=== PATIENT | male | born 1985 | race Caucasian/White ===

== ENCOUNTER 2017-10-14 18:18 | Emergency (ER) | payer OTHER ==
[~2017-10-14] VITALS: Ht 172.7 cm; Wt 63.5 kg
[~2017-10-14 18:18] MED LIST: ADDERALL; CLONIDINE0.1 PO; KLONOPIN0.5 MG; METHADONE HCL40 MG; PROZAC; REMERON15 MG PO; RESTORIL30 MG
[2017-10-14] MEDS ORDERED: ADDERALL 30 MG30 MG (19:08)
[2017-10-14] MEDS ORDERED: IMITREX100 MG (19:09)
[2017-10-14 19:38] LABS: ABSOLUTE BASOPHILS 0.1 thou/uL (0.0-0.2); ABSOLUTE EOSINOPHILS 0.1 thou/uL (0.0-0.7); ABSOLUTE LYMPHOCYTES 1.8 thou/uL (0.8-5.3); ABSOLUTE MONOCYTES 0.8 thou/uL (0.0-1.2); ABSOLUTE NEUTROPHILS 4.3 thou/uL (1.6-8.1); BASOPHILS 0.8 %; EOSINOPHILS 1.7 %; HEMATOCRIT 40.9 % (42.0-52.0); HEMOGLOBIN 13.4 gm/dL (14.0-18.0); LYMPHOCYTES 25.7 %; MCH 30.8 pg (26.0-34.0); MCHC 32.9 g/dL (28.0-37.0); MCV 93.7 fL (80.0-100.0); MONOCYTES 10.8 %; MPV 7.8 fl. (7.2-11.1); NUCLEATED RBCS 0 /100WBC; PLATELET COUNT* 263 thou/uL (150-400); RBC 4.36 mil/uL (4.50-6.00); RDW-CV 12.8 % (10.5-14.5); WBC 7.1 thou/uL (4.0-11.0)
[2017-10-14 19:48] LABS: CALCIUM 9.2 mg/dL (8.5-10.1); CREATININE 1.2 mg/dL (0.6-1.3); POTASSIUM 3.8 mmol/L (3.5-5.1)
[2017-10-14 19:53] LABS: ALBUMIN 4.6 g/dL (3.4-5.0); ALCOHOL < 10 mg/dL (<10); TOTAL BILIRUBIN 1.3 mg/dL (<0.1-1.0); TOTAL PROTEIN 8.1 g/dL (6.4-8.2)
[2017-10-14 20:05] LABS: ACETAMINOPHEN < 2 ug/mL (10-30); SALICYLATE < 2.8 mg/dL (2.8-20.0)
[2017-10-14 20:28] LABS: URINE BLOOD NEGATIVE (Negative); URINE CLARITY CLEAR; URINE COLOR YELLOW; URINE GLUCOSE-RANDOM NEGATIVE (Negative); URINE KETONES 1+ (Negative); URINE LEUKOCYTES-REFLEX NEGATIVE (Negative); URINE NITRITE-REFLEX NEGATIVE (Negative); URINE PROTEIN 1+ (Negative); URINE SPECIFIC GRAVITY >= 1.030 (1.005-1.030)
[2017-10-14 20:33] LABS: URINE BILIRUBIN 1+ (Negative)
[2017-10-14 20:34] LABS: ICTOTEST (BILI CONFIRMATORY) Negative (Negative)
[2017-10-14 20:35] LABS: SQUAMOUS 0-3 Few /LPF (0-3); URINE RBC 0-2 Rare /HPF (0-2); URINE WBC-REFLEX None Seen /HPF (0-5)
[2017-10-14 20:36] LABS: BACTERIA-REFLEX 1-9 Few /HPF (None Seen); CASTS None Seen /LPF (None Seen); CRYSTALS None Seen /LPF (None Seen)
[2017-10-14 20:37] LABS: AMP/METHAMP POSITIVE (Negative); BARBITURATES Negative (Negative); BENZODIAZEPINES POSITIVE (Negative); COCAINE Negative (Negative); METHADONE Negative (Negative); OPIATES Negative (Negative); PCP Negative (Negative); THC Negative (Negative)
[2017-10-14 23:13] VITALS: BP 117/76
--- NOTE | 2017-10-15 16:24 | EKG ---
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1985 Requested By: Scarlett Mckeon Order Number: [id number] MD: Kael Moralez Measurements Intervals [place] Rate: 124 P: 86 CO: 112 QRS: 89 QRSD: 89 T: 62 QT: 318 QTc: 457 Interpretive Statements Sinus tachycardia LAE, consider biatrial enlargement RSR' in V1 or V2, probably normal variant Borderline T abnormalities, anterior leads Compared to ECG 01/29/2012 21:08:54 RSR' in V1 or V2 now present T-wave abnormality now present Sinus rate has increased Incomplete right bundle-branch block no longer present Electronically Signed On 10-15-2017 16:23:58 CDT by Kael Moralez [email or web address] <ELECTRONICALLY SIGNED> By: Kael Moralez MD, FAC 10/15/17 1623 34 34 Kael Moralez MD, FAC /EPI
== END 2017-10-14 23:15 | disposition home or self-care (01) ==
LOC: M.ERS 18:18
PROVIDERS: Emergency Medicine
DX: F31.9 Bipolar disorder, unspecified (principal); F90.9 Attention-deficit hyperactivity disorder, unspecified type; Z79.899 Other long term (current) drug therapy